=== PATIENT | male | born 1975 ===

== ENCOUNTER 2018-04-26 18:30 | Emergency (ER) | payer MEDICAID ==
[2018-04-26 18:57] VITALS: O2SAT 97
--- NOTE | 2018-04-26 19:34 | C.PDOC ---
History Of Present Illness 42 y/o male presents to the ED complaining of 1 week of on and off left-sided chest pain. Pain comes and goes, and is non-exertional and non-radiating. Patient also complains of left arm pain which has been on and off. At present patient denies having any pain. He notes when BP cuff was applied he experienced numbness and tingling in left index finger. Denies any other symptoms. No SOB, nausea, vomiting, fevers, chills, abdominal pain, back pain, change in urination, change in bowel movement, or URI symptoms. Denies history of prior cardiac disease. Time Seen by Provider: 04/26/18 19:12 Chief Complaint (Nursing): Upper Extremity Problem/Injury History Per: Patient History/Exam Limitations: no limitations Onset/Duration Of Symptoms: Intermittent Episodes Current Symptoms Are (Timing): Gone Past Medical History Reviewed: Historical Data, Nursing Documentation, Vital Signs Vital Signs: Last Vital Signs Temp 98.6 F 04/26/18 18:52 Pulse 79 04/26/18 18:52 Resp 18 04/26/18 18:52 BP 134/85 04/26/18 18:52 Pulse Ox 97 04/26/18 18:52 - Medical History PMH: No Chronic Diseases Surgical History: No Surg Hx Family History: States: No Known Family Hx - Social History Hx Alcohol Use: No Hx Substance Use: No Review Of Systems Constitutional: Negative for: Fever, Chills, Weakness Eyes: Negative for: Redness, Other (scleral icterus) ENT: Negative for: Mouth Swelling Cardiovascular: Positive for: Chest Pain. Negative for: Palpitations Respiratory: Negative for: Cough, Shortness of Breath Gastrointestinal: Negative for: Nausea, Vomiting, Diarrhea Genitourinary: Negative for: Dysuria, Hematuria Musculoskeletal: Positive for: Arm Pain (left). Negative for: Back Pain Skin: Negative for: Rash Neurological: Positive for: Numbness (and tingling to left index finger). Negative for: Weakness, Headache, Dizziness Physical Exam - Physical Exam Appears: Well, Non-toxic, No Acute Distress Skin: Normal Color, Warm, No Rash Head: Atraumatic, Normacephalic Eye(s): bilateral: Normal Inspection (no scleral icterus), PERRL, EOMI Ear(s): Bilateral: Normal (no drainage) Nose: Normal Oral Mucosa: Moist Throat: Normal (no swelling or injection), No Erythema Neck: Normal ROM, Supple Chest: Symmetrical, No Tenderness, No Ecchymosis Cardiovascular: Rhythm Regular, No Murmur Respiratory: No Accessory Muscle Use, No Rales, No Rhonchi, No Wheezing, Other (Normal inspiratory effort) Gastrointestinal/Abdominal: Soft, No Tenderness, No Distention Back: Other (Ambulating with steady upright gait) Extremity: No Tenderness, No Pedal Edema, Capillary Refill, No Swelling Extremity: Bilateral: Atraumatic, Normal ROM Pulses: Left Radial: Normal, Right Radial: Normal Neurological/Psych: Oriented x3, Normal Cranial Nerves (grossly intact) ED Course And Treatment - Laboratory Results Result Diagrams: 04/26/18 19:40 04/26/18 19:40 ECG: Interpreted By Me ECG Rhythm: Sinus Rhythm Interpretation Of ECG: No ischemic changes Rate From EC O2 Sat by Pulse Oximetry: 97 (RA) Pulse Ox Interpretation: Normal - Radiology CXR: Interpreted by Me, Viewed By Me CXR Interpretation: Yes: No Acute Disease Medical Decision Making Medical Decision Making: Impression: likely musculoskeletal pain, rule out ACS Plan: - BMP - Troponin I - CBC - Chest x-ray 2100 Labs reviewed. Trop negative. Heart Score: 0 Patient is medically stable for discharge. Counseled regarding diagnosis and the importance of follow up. Dx: Musculoskeletal pain Disposition Counseled Patient/Family Regarding: Studies Performed, Diagnosis, Need For Followup - Disposition Disposition: HOME/ ROUTINE Disposition Time: 21:09 Condition: STABLE Additional Instructions: FRANDY BWOER, thank you for letting us take care of you today. Your provider was Mitul Kapoor MD and you were treated for atypical chest pain. The emergency medical care you received today was directed at your acute symptoms. If you were prescribed any medication, please fill it and take as directed. It may take several days for your symptoms to resolve. Return to the Emergency Department if your symptoms worsen, do not improve, or if you have any other problems. Please contact your doctor or call one of the physicians/clinics you have been referred to that are listed on the Patient Visit Information form that is included in your discharge packet. Bring any paperwork you were given at discharge with you along with any medications you are taking to your follow up visit. Our treatment cannot replace ongoing medical care by a primary care provider outside of the emergency department. Thank you for allowing the [facility] team to be part of your care today. If you had an X-Ray or CT scan: A Radiologist will review the ED reading if any change in treatment is needed we will contact you. Instructions: Chest Pain That Is Not Caused by the Heart (DC), Paresthesias (DC) Forms: [employer] (Yi), General Discharge Instructions Print Language: KAZAKH - Clinical Impression Clinical Impression: Atypical chest pain, Paresthesia and pain of left extremity - PA / ACUTE COORDINATOR / Resident Statement MD/DO has reviewed & agrees with the documentation as recorded. - Scribe Statement The provider has reviewed the documentation as recorded by the Scribe Minerva Molina All medical record entries made by the Scribe were at my direction and personally dictated by me. I have reviewed the chart and agree that the record accurately reflects my personal performance of the history, physical exam, medical decision making, and the department course for this patient. I have also personally directed, reviewed, and agree with the discharge instructions and disposition.
[2018-04-26 19:46] LABS: BASO # 0.1 K/uL (0.0-0.2); BASO % 0.9 % (0.0-2.0); EOS # 0.2 K/uL (0.0-0.7); EOS % 3.6 % (0.0-4.0); LYMPH # 1.8 K/uL (1.0-4.3); LYMPH % 26.2 % (20.0-40.0); MEAN CELL VOLUME 89.2 fL (80.0-94.0); MEAN CORPUSCULAR HEMOGLOBIN 30.4 pg (27.0-31.0); MEAN PLATELET VOLUME 8.5 fL (7.2-11.7); MONO # 0.6 K/uL (0.0-0.8); MONO % 8.3 % (0.0-10.0); NEUT # 4.1 K/uL (1.8-7.0); NRBC % 0.1 % (0.0-2.0); RBC 4.93 Mil/uL (4.40-5.90); RED CELL DISTRIBUTION WIDTH 13.2 % (11.5-14.5); WHITE BLOOD COUNT 6.7 K/uL (4.8-10.8)
[2018-04-26 20:01] LABS: BLOOD UREA NITROGEN 15 mg/dL (9-20); CALCIUM 8.5 mg/dl (8.6-10.4); GFR NON-AFRICAN AMERICAN > 60
[2018-04-26 21:37] VITALS: BP 136/77; PULSE 76; RESP 16; TEMP 98
--- NOTE | 2018-04-27 09:12 | RAD ---
Date of service: 04/26/2018 PROCEDURE: CHEST RADIOGRAPH, 1 VIEW HISTORY: chest pain COMPARISON: None available. FINDINGS: LUNGS: Clear. PLEURA: No pneumothorax or pleural fluid seen. CARDIOVASCULAR: There is absence of aortic atherosclerotic calcification on x-ray. No significant appearing pulmonary venous congestion. OSSEOUS STRUCTURES: No significant abnormalities. VISUALIZED UPPER ABDOMEN: Normal. OTHER FINDINGS: None. IMPRESSION: No active disease.
--- NOTE | 2018-04-27 12:20 | CARD ---
APPROVED REPORT Date of service: 04/26/2018 EKG Measurement Heart [id number] <Conclusion> Normal sinus rhythm Normal ECG
== END 2018-04-26 21:36 | disposition home or self-care (01) ==
LOC: C.ER 18:30
DX: R07.89 Other chest pain (principal); R20.2 Paresthesia of skin; M79.602 Pain in left arm